=== PATIENT | female | born 1970 | race American Indian/Alaskan Native ===

== ENCOUNTER 2020-08-23 08:22 | Outpatient (CLI) | payer OTHER ==
--- NOTE | 2020-08-23 09:53 | Mammography Report ---
DIGITAL SCREENING MAMMOGRAM WITH CAD, 08/23/2020 INDICATION: Routine screening mammography. TECHNIQUE: Digital bilateral 2D mammography was obtained in the craniocaudal and mediolateral obliq ue projections. This examination was interpreted with the benefit of Computer-Aided Detection analysi s. COMPARISON: None available FINDINGS: Breast Density: There are scattered areas of fibroglandular density. There is a nodular density seen in the 2:00 position of the left breast, middle depth, measuring up t o 6.3 x 3.8 cm. Additionally, there is a 9 mm nodular asymmetric density seen in the medial right doreen ast, posterior depth, on CC view only. IMPRESSION: 1. A nodular density in the left breast as well as an asymmetric density in the right breast require further evaluation with targeted ultrasound and additional views if needed. Follow up recommendation: Ultrasound Category 0: Incomplete. Needs additional imaging evaluation and/or prior mammograms for comparison. A "normal" or negative report should not discourage follow up or biopsy of a clinically significant f inding. A written summary of these findings will be mailed to the patient. The patient will be entered into a mammography reporting system which will generate a reminder letter for the patient's next appointmen t at the appropriate interval. The [employer] recommends yearly mammograms starting at age 40 and continuing as l dorian as a woman is in good health. Breast MRI is recommended for women with an approximate 20-25% or greater lifetime risk of breast cancer, including women with a strong family history of breast or ova demetri cancer or who have been treated for Hodgkin's disease. Signer Name: Chelita Tran MD Signed: 08/23/2020 9:48 AM Workstation Name: [id number]
== END 2020-08-23 08:23 | disposition home or self-care (01) ==
LOC: SPVWC 08:22
PROVIDERS: ATTEND Surgery
DX: Z12.31 Encounter for screening mammogram for malignant neoplasm of breast (principal)
CPT/HCPCS: 77067

== ENCOUNTER 2020-08-30 10:06 | Outpatient (CLI) | payer OTHER ==
--- NOTE | 2020-08-30 15:55 | Mammography Report ---
RIGHT DIGITAL DIAGNOSTIC MAMMOGRAM WITH CAD 08/30/2020 BILATERAL LIMITED BREAST ULTRASOUND INDICATION: Bilateral breast nodularity on screening mammography. TECHNIQUE: Digital mammographic imaging was performed. This examination was interpreted with the dulce maria efit of Computer-Aided Detection (CAD) analysis. COMPARISON: Bilateral mammography 08/23/20. FINDINGS: Breast Density: There are scattered areas of fibroglandular density. MAMMOGRAPHIC FINDINGS: The small nodule in the right breast superomedially corresponds to the sonogra phically detected lesion (confirmed on spot compression views of the right breast with a skin marker placed at ultrasound). ULTRASOUND FINDINGS: Targeted ultrasound evaluation was performed of the area of interest. RIGHT: There is a 6 mm benign-appearing mildly complex cyst at the 1:00 position 6 cm from the nipple which corresponds to the mammographic lesion. LEFT: There is a 4.5 cm simple cyst at the 2:00 position 4 cm from the nipple which corresponds to th e site of the mammographically detected nodularity. There are several smaller adjacent simple/mildly complicated cysts in this region, the largest of which measures 1.1 cm. There is also a 1.1 cm mildly complicated cyst at the 12:00 position 5 cm from the nipple. IMPRESSION: The bilateral mammographically detected nodules correspond to benign-appearing cysts sono graphically. Follow up recommendation: Routine yearly BI-RADS Category 2: Benign. A "normal" or negative report should not discourage follow up or biopsy of a clinically significant f inding. A written summary of these findings will be mailed to the patient. The patient will be entered into a mammography reporting system which will generate a reminder letter for the patient's next appointmen t at the appropriate interval. According to the [employer], yearly mammograms are recommended starting at age 40 and continuing as long as a woman is in good health. Breast MRI is recommended for women with an petr roximately 20-25% or greater lifetime risk of breast cancer, including women with a strong family his tory of breast or ovarian cancer and women who have been treated for Hodgkin's disease. Signer Name: Kavon Green MD Signed: 08/30/2020 3:51 PM Workstation Name: [id number]
== END 2020-08-30 10:07 | disposition home or self-care (01) ==
LOC: SPVWC 10:06
PROVIDERS: ATTEND Surgery
DX: N60.01 Solitary cyst of right breast (principal); N60.02 Solitary cyst of left breast

== ENCOUNTER 2021-08-25 08:35 | Outpatient (CLI) | payer OTHER ==
--- NOTE | 2021-08-25 11:41 | Mammography Report ---
DIGITAL SCREENING MAMMOGRAM WITH CAD, 08/25/2021 CLINICAL INFORMATION / INDICATION: Routine screening mammography. SCREENING MAMMO Z12.31 TECHNIQUE: Digital bilateral 2D mammography was obtained in the craniocaudal and mediolateral obliqu e projections. This examination was interpreted with the benefit of Computer-Aided Detection analysis . COMPARISON: 08/23/2020 FINDINGS: Breast Density: There are scattered areas of fibroglandular density. No dominant mass, suspicious calcifications, or architectural distortion in either breast. Stable benign-appearing left-sided nodularity. IMPRESSION: No mammographic evidence of malignancy. Follow up recommendation: Routine yearly BI-RADS Category 2: Benign. A "normal" or negative report should not discourage follow up or biopsy of a clinically significant f inding. A written summary of these findings will be mailed to the patient. The patient will be entered into a mammography reporting system which will generate a reminder letter for the patient's next appointmen t at the appropriate interval. The [employer] recommends yearly mammograms starting at age 40 and continuing as l dorian as a woman is in good health. Breast MRI is recommended for women with an approximate 20-25% or greater lifetime risk of breast cancer, including women with a strong family history of breast or ova demetri cancer or who have been treated for Hodgkin's disease. Signer Name: Elio Lieberman MD Signed: 08/25/2021 11:37 AM Workstation Name: [id number]
== END 2021-08-25 08:36 | disposition home or self-care (01) ==
LOC: SPVWC 08:35
PROVIDERS: ATTEND Obstetrics & Gynecology
DX: Z12.31 Encounter for screening mammogram for malignant neoplasm of breast (principal)
CPT/HCPCS: 77067